=== PATIENT | male | born 1960 | race Caucasian/White ===

== ENCOUNTER → 2020-07-26 | Outpatient (CLI) | payer BC ==
--- NOTE | 2020-07-26 18:47 | CONS ---
CONSULTATION REASON FOR EVALUATION: Sleep apnea. This is a 60-year-old male patient who was referred to us because of loud snoring, and he has been feeling fatigued and slightly sleepy recently. No recent weight gain. His has described loud snoring and occasional apneas. The patient denies waking up with a choking or gasping sensation. He goes to bed around 8 p.m., wakes up at 1:15 a.m. in the morning. He lives in [place] and he works in [place]. He has [address] in each direction every day. He has to be at work at around 3 a.m. and he gets out of work at 2:30 p.m. He is arriving home by around 4 p.m. Between 4 p.m. and 8 p.m. the patient has dinner. He does family activities and at times he takes naps. Ultimately he goes to bed around 8 p.m. He does not fall asleep while driving his car. No history of any motor vehicle accident because of feeling drowsy or sleepy. No errors or judgment mistakes while at work. He does not fall asleep while at work or meetings. His current Saint Joseph score is 6. He has history of seizure disorder, but he has not had any recent seizures. He is on Dilantin for now. No history of substance abuse. No history of any restless in the lower extremities. No history of any sleepwalking, sleeptalking, grinding of the teeth, anxiety or panic attacks. No nocturnal heartburn or chest pain or shortness of breath. PAST MEDICAL HISTORY: Seizure disorder. PAST SURGICAL HISTORY: Negative. DRUG ALLERGIES: NOT KNOWN. OUTPATIENT MEDICATIONS: Outpatient medication includes Dilantin 100 mg t.i.d. SOCIAL HISTORY: Nonsmoker. No history of alcoholism. No history of IV drugs. 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 FAMILY HISTORY: Positive for diabetes mellitus. REVIEW OF SYSTEMS: Fourteen-point review of systems was done. Positive findings are all mentioned above in the history of present illness. PHYSICAL EXAMINATION: BP is 152/99, pulse 81, respirations 16, temperature 98.1, saturation 98% on room air. BMI is 29. Saint Joseph score is 6. Neck size is 16. Weight is 226. Height is 6 feet 2 inches. GENERAL APPEARANCE: Calm, comfortable. HEAD: Atraumatic, normocephalic. NECK: Supple. No goiter or neck masses. Mallampati class IV. LUNGS: Clear to auscultation. HEART: Heart sounds are regular rate and rhythm. Normal S1, S2. No S3, S4. No murmurs. ABDOMEN: Soft, nontender. No organomegaly. EXTREMITIES: No edema. No cyanosis or clubbing. IMPRESSION: 1. Loud snoring. 2. Chronic fatigue with sleepiness, Saint Joseph score of 6. Rule out obstructive sleep apnea. 3. Seizure disorder. 4. Mallampati class IV. PLAN: 1. Proceed with a home sleep study. 2. Sleep on the side. 3. Keep the head of the bed elevated. 4. No reported history of any sinus disease or disorder at this point in time. The patient will benefit from avoiding late alcohol drinking, late dinner, and he would also benefit from limited weight loss. Will proceed with a home sleep study and report the results back to the patient. We will consider CPAP therapy if there is considerable sleep apnea affecting the patient's sleep quality and daytime functionality. Will continue to follow. MMODL / IJN: [id number] /
== END | disposition home or self-care (01) ==
LOC: SLEEP 15:37
PROVIDERS: ATTEND Internal Medicine Critical Care Medicine
DX: R06.83 Snoring (principal); R53.82 Chronic fatigue, unspecified; G40.909 Epilepsy, unspecified, not intractable, without status epilepticus
CPT/HCPCS: 99211

== ENCOUNTER 2023-10-04 09:03 | Day surgery (SDC) | payer BC ==
[2023-10-04] MEDS: LACTATED RINGERS 1,000 ML IV ONE (09:33)
[2023-10-04] MEDS ORDERED: LACTATED RINGERS 1,000 ML IV SCH (09:35)
[2023-10-04 10:03] VITALS: TEMP 98
[2023-10-04] MEDS ORDERED: PROPOFOL 10 MG/ML 20 ML VIAL IV ONE (10:10)
[2023-10-04] MEDS ORDERED: LIDOCAINE 1% INJ 10MG/ML (20 ML MDV) ONE (10:10)
--- NOTE | 2023-10-04 10:37 | P.PCN ---
Date of Procedure: 10/04/23 Procedure(s) Performed: BRIEF HISTORY: Patient is a 63-year-old pleasant White male scheduled for an elective colonoscopy as a part of Screening for colon cancer. PROCEDURE PERFORMED: Colonoscopy with biopsy. PREOPERATIVE DIAGNOSIS: Screening for colon cancer IV sedation per Anesthesia. PROCEDURE: After informed consent was obtained, the patient, was brought into the endoscopy unit. IV sedation was administered by Anesthesia under continuous monitoring. Digital rectal examination was normal. Initially the Olympus CF-160 flexible video colonoscope was then inserted in the rectum, gradually advanced into the cecum without any difficulty. Careful examination was performed as the scope was gradually being withdrawn. Ileocecal valve and the appendiceal orifice were visualized and appeared normal. Prep was excellent. Mucosa of the cecum, ascending colon, transverse colon, descending colon, sigmoid colon, and rectum appeared normal. The proximal rectum there were 2 polyps measuring 3 and 5 mm in size both of which were removed by cold biopsy.Retroflexion was performed in the rectum and no lesions were seen. The patient tolerated the procedure well. IMPRESSION: 3 mm and 5 Millimeters proximal rectal polyp status post cold biopsy Rest of the colon appeared normal RECOMMENDATIONS: Findings of this examination were discussed with the patient As well as his family.He was advised to follow with the biopsy results. If the biopsy reveals adenoma he can have a repeat colonoscopy in 5 years.
[2023-10-04 11:31] VITALS: BP 127/78; PULSE 78; RESP 18
== END 2023-10-04 11:32 | disposition home or self-care (01) ==
LOC: ORWHC2ENDO 09:03
PROVIDERS: ATTEND Internal Medicine Gastroenterology
DX: Z12.11 Encounter for screening for malignant neoplasm of colon (principal); K62.1 Rectal polyp; I10 Essential (primary) hypertension; G47.33 Obstructive sleep apnea (adult) (pediatric); Z79.899 Other long term (current) drug therapy; Z86.69 Personal history of other diseases of the nervous system and sense organs; Z86.39 Personal history of other endocrine, nutritional and metabolic disease
CPT/HCPCS: 88305; 45380; J2001; J2704

== ENCOUNTER → 2024-08-29 | Outpatient (CLI) | payer BC ==
[2024-08-30 06:41] LABS: Basophils # (A) 0.04 X 10*3/uL (0.00-0.10); Eosinophils # (A) 0.24 X 10*3/uL (0.04-0.35); Eosinophils % (A) 5.7 %; HCT 44.2 % (39.6-50.0); HGB 14.8 g/dL (13.0-17.0); Lymphocytes # (A) 1.03 X 10*3/uL (0.90-5.00); Lymphocytes % (A) 24.5 %; MCHC 33.5 g/dL (32.0-37.0); MCV 95.7 FL (80.0-97.0); Mean Platelet Volume 12.3 FL (9.5-12.2); Monocytes # (A) 0.41 X 10*3/uL (0.20-1.00); Monocytes % (A) 9.8 %; NRBC Per 100 WBC 0 X 10*3/uL (0.00-0.01); Neutrophils # (A) 2.47 X 10*3/uL (1.80-7.70); Neutrophils % (A) 58.8 %; Platelet Count 152 X 10*3/uL (140-440); RBC 4.62 X 10*6/uL (4.40-5.60); RDW 12.1 % (11.5-14.5)
[2024-08-30 07:25] LABS: BUN/Creat Ratio 14.58 Ratio (12.00-20.00); Blood Urea Nitrogen 17.5 mg/dL (9.0-27.0); Chol/HDL Ratio 2.79 Ratio; Glucose 98 mg/dL (70-110); LDL Cholesterol,Calculated 95.8 mg/dL (0.0-131.0); VLDL Calculation 8.74 mg/dL (5.00-40.00)
[2024-08-30 07:26] LABS: ALT 27 U/L (10-49); AST 19 U/L (14-35); Albumin 4.6 g/dL (3.8-4.9); Albumin/Globulin Ratio 2.09 Ratio (1.60-3.17); Alkaline Phosphatase 66 U/L (41-126); Bilirubin, Conjugated <0.20 mg/dL (0.20-0.40); Bilirubin,Unconjugated >0 mg/dL (0.20-1.00); Calcium 9.3 mg/dL (8.7-10.3); Carbon Dioxide 26.8 mmol/L (21.6-31.8); Chloride 106 mmol/L (96-109); Globulin 2.2 g/dL (1.6-3.3); Potassium 5.2 mmol/L (3.5-5.5); Prostate Specific Antigen 4.76 ng/mL (0.000-4.500); Sodium 141 mmol/L (135-145); T4, Free (Free Thyroxine) 0.94 ng/dL (0.80-1.80); Total Bilirubin 0.2 mg/dL (0.3-1.2); Total Protein 6.8 g/dL (6.2-8.2)
== END | disposition home or self-care (01) ==
LOC: LABWHC1 09:03
PROVIDERS: ATTEND Family Medicine
DX: Z12.5 Encounter for screening for malignant neoplasm of prostate (principal); I10 Essential (primary) hypertension; E78.5 Hyperlipidemia, unspecified
CPT/HCPCS: 36415; 80048; 80061; 80076; 84153; 84439; 84443; 85025

== ENCOUNTER → 2024-09-28 | Outpatient (CLI) | payer BC ==
--- NOTE | 2024-09-28 08:41 | MR ---
EXAMINATION TYPE: MR Prostate wo/w con DATE OF EXAM: 09/28/2024 7:38 AM COMPARISON: None. CLINICAL INDICATION: Male, 64 years old with history of R97.20 ELEVATED PROSTATE SPECIFIC ANTIGEN [PS A]; Elevated PSA. TECHNIQUE: Multi-planar, multi-sequence imaging of the pelvis is performed prior to and following the uncomplicated administration of bolus intravenous gadolinium. IV Contrast: 10 mL Gadobutrol Interpretive Criteria: PI-RADS v2.1 SERUM PSA: 08-30-24 = 4.76 05-09-23 = 2.08 SURGICAL PATHOLOGY: No data available. FINDINGS: Prostatic dimensions: 5.0 x 5.4 x 3.9 cm. Ellipsoid Volume:55.13 (PSA density=0.09 ng/mL/mL) CENTRAL GLAND (Central and Transition Zones/CZ+TZ): Multiple bilateral, heterogenous appearing hypertrophic stromal nodules, without suspicious lesion. M edian lobe hypertrophy with protrusion into the base of the bladder. (PI-RADS 2) PERIPHERAL ZONE (PZ): Bilateral linear, indistinct wedgelike areas of low ADC, and low T2 signal, No evidence of masslike a bnormality, or localized perfusional hypervascularity, to further suggest a focus of clinically signi ficant prostate cancer. (PI-RADS 2) SEMINAL VESICLES (SV): Symmetric and unremarkable. PERIPROSTATIC TISSUES: Unremarkable. LYMPH NODES: No enlarged pelvic lymph node. REMAINING PELVIS: Bladder wall is within normal limits given distention. No abnormal free or organized intrapelvic fluid collection. No pathologic bowel dilation or mural thickening. Left fat containing inguinal hernia OSSEOUS STRUCTURES: No suspicious osseous abnormality. IMPRESSION: 1. No specific features for high-risk prostate cancer. Maximum PI-RADS score: 2. 2. Moderate BPH, estimated gland volume 55.13 (PSA density=0.09 ng/mL/mL) 3. No suspicious osseous lesion. No lymphadenopathy. No evidence of prostate adenocarcinoma involving the periprostatic tissues. [facility], , 09/28/2024 8:39 AM
== END | disposition home or self-care (01) ==
LOC: RADMRIMAIN 06:29
PROVIDERS: ATTEND Family Medicine
DX: N40.0 Benign prostatic hyperplasia without lower urinary tract symptoms (principal); R97.20 Elevated prostate specific antigen [PSA]; K40.90 Unilateral inguinal hernia, without obstruction or gangrene, not specified as recurrent
CPT/HCPCS: 72197; A9585